=== PATIENT | male | born 1945 | race Two or more races ===

== ENCOUNTER 2018-07-02 09:14 | Outpatient (CLI) | payer OTHER | END 2018-07-02 09:28 | disposition home or self-care (01) | LOC: LAB 09:14 | DX: R05 Cough (principal); J30.1 Allergic rhinitis due to pollen ==

== ENCOUNTER 2018-11-27 07:56 | Outpatient (CLI) | payer OTHER | END 2018-11-27 08:11 | disposition home or self-care (01) | LOC: NUCLEAR 07:56 | DX: R91.1 Solitary pulmonary nodule (principal) | CPT/HCPCS: 78816; A9552 ==

== ENCOUNTER 2022-08-23 10:16 | Emergency (ER) | payer OTHER ==
[~2022-08-23] VITALS: Ht 172.7 cm; Wt 59.0 kg
[2022-08-23] MEDS ORDERED: ATORVASTATIN CA10 MG PO (10:34)
[2022-08-23] MEDS ORDERED: COZAAR100 MG PO (10:34)
[2022-08-23] MEDS ORDERED: TOPROL XL50 M1 PO (10:35)
[2022-08-23] MEDS ORDERED: GLUMETZA500 MG PO (10:35)
[2022-08-23] MEDS ORDERED: CHILDREN'S ASPI81 MG PO (10:35)
== END 2022-08-23 16:56 | disposition home or self-care (01) ==
LOC: ER 10:16
DX: J18.8 Other pneumonia, unspecified organism (principal); J45.909 Unspecified asthma, uncomplicated; E11.9 Type 2 diabetes mellitus without complications; Z79.84 Long term (current) use of oral hypoglycemic drugs; I10 Essential (primary) hypertension; N20.0 Calculus of kidney; N28.1 Cyst of kidney, acquired

== ENCOUNTER 2024-03-02 07:55 | Outpatient (CLI) | payer OTHER ==
[~2024-03-02 07:55] MED LIST: ATORVASTATIN CA10 MG PO; CHILDREN'S ASPI81 MG PO; COZAAR100 MG PO; GLUMETZA500 MG PO; TOPROL XL50 M1 PO
== END 2024-03-02 08:00 | disposition home or self-care (01) ==
LOC: RAD 07:55
PROVIDERS: ATTEND General Practice
DX: R05.3 Chronic cough (principal)